=== PATIENT | male | born 1965 | race Caucasian/White ===

== ENCOUNTER 2025-01-28 20:20 | Inpatient (IN) | payer BC ==
[2025-01-28 20:35] VITALS: RESP 18
[2025-01-28 22:04] LABS: ABSOLUTE IMMATURE GRANULOCYTES 0.05 x10^3/uL (0.0-0.031); BASOPHILS # 0.04 x10^3/uL (0.01-0.08); EOSINOPHIL % 0.2 % (0.8-7.0); EOSINOPHILS # 0.04 x10^3/uL (0.04-0.54); HEMATOCRIT 46.3 % (40.1-51.0); HEMOGLOBIN 15.2 g/dL (13.7-17.5); MCHC 32.8 g/dl (32.3-36.5); MEAN CELL VOLUME 89.7 fl (79.0-92.2); MEAN PLT VOLUME 8.7 fl (9.4-12.4); PLATELET COUNT # 268 x10^3/uL (163-337); RDW 14.4 % (12.2-16.1)
[2025-01-28] MEDS ORDERED: ACETAMINOPHEN INJECTION 100 ML ONE (22:29)
[2025-01-28] MEDS ORDERED: DIPHTH,PERTUSS(ACELL),TET 0.5 ML DISP.SYRIN IM ONE (22:29)
[2025-01-28 22:32] LABS: POTASSIUM 4.9 mmol/L (3.5-5.1)
[2025-01-28 22:34] LABS: CALCIUM 9.3 mg/dL (8.5-10.1)
[2025-01-28 22:35] LABS: ALBUMIN 3.7 g/dl (3.4-5.0); BLOOD UREA NITROGEN 25.1 mg/dL (7-18)
[2025-01-28 22:38] LABS: CREATININE 1.9 mg/dL (0.55-1.3)
[2025-01-28 22:39] LABS: BILIRUBIN,TOTAL 0.3 mg/dL (0.2-1)
[2025-01-28 22:40] LABS: TOT PROT 7.5 g/dl (6.4-8.2)
[2025-01-28] MEDS ORDERED: BACITRACIN ZINC 15 GM TUBE TOPICAL OINTMENT ONE (22:43)
[2025-01-28] MEDS: DIPHTH,PERTUSS(ACELL),TET 0.5 ML DISP.SYRIN IM ONE (22:45)
[2025-01-28] MEDS: BACITRACIN ZINC 15 GM TUBE TOPICAL OINTMENT TP ONE (22:49)
[2025-01-28] MEDS: ACETAMINOPHEN 1000 MG/100 ML BAG IVPB ONE (22:49)
[2025-01-28] MEDS: SODIUM CHLORIDE 0.9% 500 ML INFUS.BAG IV ONE ×2 (22:49→23:45)
[2025-01-28] MEDS: ACETAMINOPHEN 325 MG TABLET (FP) PO ONE (22:50)
[2025-01-28 23:31] LABS: VENOUS BASE EXCESS -2.1 mmol/L (-2-2); VENOUS O2 SATURATION 92.7 % (70-80); VENOUS PCO2 37.2 mmHg (38-52); VENOUS PH 7.395 (7.310-7.410)
[2025-01-28 23:39] LABS: INR 1.02 (0.83-1.09); PROTHROMBIN TIME (PATIENT) 11.2 SEC (9.7-13.0)
[2025-01-28 23:54] LABS: EPI CELLS 2 /uL (0-25.1); HYALINE CASTS 0 /uL (0-3.1); URINE APPEARANCE CLEAR; URINE BACTERIA 2 /uL (0-1359); URINE BILIRUBIN NEGATIVE (NEGATIVE); URINE COLOR YELLOW; URINE GLUCOSE (UA) NEGATIVE (NEGATIVE); URINE KETONE NEGATIVE (NEGATIVE); URINE LEUK ESTERASE NEGATIVE (NEGATIVE); URINE NITRITE NEGATIVE (NEGATIVE); URINE PROTEIN NEGATIVE (NEGATIVE); URINE RBC 49 /uL (0-23.9); URINE UROBILINOGEN 0.2 mg/dL (0.2-1.0); URINE WBC 3 /uL (0-25.8)
[2025-01-29 00:21] LABS: COCAINE, UR NEGATIVE (NEGATIVE); METHADONE, UR NEGATIVE (NEGATIVE); URINE AMPHETAMINES NEGATIVE (NEGATIVE); URINE BARBITURATES NEGATIVE (NEGATIVE); URINE BENZODIAZEPINES NEGATIVE (NEGATIVE)
[2025-01-29 00:22] LABS: PHENCYCLIDINE,URINE NEGATIVE (NEGATIVE)
[2025-01-29 00:26] LABS: OPIATES, URI NEGATIVE (NEGATIVE)
[2025-01-29 03:57] VITALS: BMI 34.2
[2025-01-29 07:26] LABS: POTASSIUM 4.4 mmol/L (3.5-5.1)
[2025-01-29 07:33] LABS: ALBUMIN 3.3 g/dl (3.4-5.0); BLOOD UREA NITROGEN 23.5 mg/dL (7-18); CALCIUM 8.9 mg/dL (8.5-10.1)
[2025-01-29 07:36] LABS: CREATININE 1.3 mg/dL (0.55-1.3)
[2025-01-29 07:38] LABS: BILIRUBIN,TOTAL 0.5 mg/dL (0.2-1); TOT PROT 6.8 g/dl (6.4-8.2)
[2025-01-29 07:45] LABS: HEMATOCRIT 43.4 % (40.1-51.0); HEMOGLOBIN 14.2 g/dL (13.7-17.5); MCHC 32.7 g/dl (32.3-36.5); MEAN CELL VOLUME 90.2 fl (79.0-92.2); MEAN PLT VOLUME 8.8 fl (9.4-12.4); PLATELET COUNT # 262 x10^3/uL (163-337); RDW 14.6 % (12.2-16.1)
[2025-01-29] MEDS: LISINOPRIL 20 MG TABLET PO SCH (09:18)
[2025-01-29] MEDS: BACITRACIN ZINC 15 GM TUBE TOPICAL OINTMENT TP SCH (18:41)
[2025-01-30 06:58] LABS: HEMATOCRIT 46.1 % (40.1-51.0); MCHC 32.5 g/dl (32.3-36.5); MEAN PLT VOLUME 8.9 fl (9.4-12.4); PLATELET COUNT # 257 x10^3/uL (163-337); RDW 14.6 % (12.2-16.1)
[2025-01-30 07:25] LABS: POTASSIUM 4.4 mmol/L (3.5-5.1)
[2025-01-30 07:26] LABS: ALBUMIN 3.4 g/dl (3.4-5.0)
[2025-01-30 07:28] LABS: BLOOD UREA NITROGEN 17.9 mg/dL (7-18)
[2025-01-30 07:31] LABS: BILIRUBIN,TOTAL 0.9 mg/dL (0.2-1); CREATININE 1.1 mg/dL (0.55-1.3); TOT PROT 7.3 g/dl (6.4-8.2)
[2025-01-31] MEDS: guaiFENesin/D-METHORPHAN HB 10 ML UNIT-DOSE CUPS PO ONE (00:23)
[2025-01-31 04:02] LABS: EPI CELLS 2 /uL (0-25.1); HYALINE CASTS 1 /uL (0-3.1); PH,URINE 5.5 (5.0-8.0); URINE APPEARANCE CLEAR; URINE BACTERIA 1 /uL (0-1359); URINE BILIRUBIN NEGATIVE (NEGATIVE); URINE COLOR YELLOW; URINE GLUCOSE (UA) NEGATIVE (NEGATIVE); URINE KETONE NEGATIVE (NEGATIVE); URINE LEUK ESTERASE NEGATIVE (NEGATIVE); URINE NITRITE NEGATIVE (NEGATIVE); URINE PROTEIN NEGATIVE (NEGATIVE); URINE RBC 40 /uL (0-23.9); URINE UROBILINOGEN 0.2 mg/dL (0.2-1.0); URINE WBC 2 /uL (0-25.8)
[2025-01-31 05:22] VITALS: BP 110/67; PULSE 84; TEMP 98.2
[2025-01-31 07:52] LABS: HEMATOCRIT 45.2 % (40.1-51.0); HEMOGLOBIN 15.1 g/dL (13.7-17.5); MCHC 33.4 g/dl (32.3-36.5); MEAN CELL VOLUME 89.5 fl (79.0-92.2); MEAN PLT VOLUME 8.9 fl (9.4-12.4); PLATELET COUNT # 288 x10^3/uL (163-337); RDW 14.5 % (12.2-16.1)
[2025-01-31 08:12] LABS: POTASSIUM 4.3 mmol/L (3.5-5.1)
[2025-01-31 08:20] LABS: ALBUMIN 3.3 g/dl (3.4-5.0); BLOOD UREA NITROGEN 18.2 mg/dL (7-18); CALCIUM 9.1 mg/dL (8.5-10.1)
[2025-01-31 08:23] LABS: CREATININE 1.1 mg/dL (0.55-1.3)
[2025-01-31 08:24] LABS: BILIRUBIN,TOTAL 0.8 mg/dL (0.2-1); TOT PROT 7.5 g/dl (6.4-8.2)
== END 2025-01-31 15:52 | disposition home or self-care (01) | DRG 84 ==
LOC: JER 20:20 → JERBED 01-29 01:33 → J4W 01-29 03:51
PROVIDERS: ADMIT Hospitalist; ATTEND Internal Medicine
DX: S06.6X9A Traumatic subarachnoid hemorrhage with loss of consciousness of unspecified duration, initial encounter (principal); W19.XXXA Unspecified fall, initial encounter; Y93.9 Activity, unspecified; Y92.89 Other specified places as the place of occurrence of the external cause; Y99.9 Unspecified external cause status; I10 Essential (primary) hypertension; D72.829 Elevated white blood cell count, unspecified
CPT/HCPCS: 0241U-QW; 36415; 70450-TC; 70480-TC; 70486-TC; 71046-TC-FY; 72125-TC; 73130-TC-LT-FY; 76775-TC; 80053; 80307; 81003; 82803; 83605; 84484; 85025; 85027; 85610; 85730; 86850; 86900; 86901; 87040; 87086; 90715; 93005; 93010; 97116-GP; 97161-GP; 99285-25; J0131